=== PATIENT | female | born 1985 | race Two or more races ===

== ENCOUNTER 2025-02-12 06:25 | Day surgery (SDC) | payer OTHER, SELFPAY | END 2025-02-12 12:02 | disposition home or self-care (01) | LOC: GI 06:25 | PROVIDERS: ATTENDING PHYSICIAN Internal Medicine; FAMILY PHYSICIAN Family Medicine | DX: D50.0 Iron deficiency anemia secondary to blood loss (chronic) (principal); K55.20 Angiodysplasia of colon without hemorrhage; K31.89 Other diseases of stomach and duodenum; K62.1 Rectal polyp; K63.5 Polyp of colon; K29.50 Unspecified chronic gastritis without bleeding | CPT/HCPCS: 45382; 45380; 43239; 88305; 88342 ==